=== PATIENT | female | born 1965 | race Caucasian/White ===

== ENCOUNTER 2020-06-04 10:09 | Outpatient (NON) | payer OTHER, SELFPAY ==
[2020-06-04 23:33] LABS: SARS-CoV-2 RNA PCR Negative
== END 2020-06-04 10:10 ==
LOC: ANHCOVIDDT 10:10
PROVIDERS: Visit Provider Registered Nurse
DX: R06.02 Shortness of breath (principal); J32.9 Chronic sinusitis, unspecified; Z20.822 Contact with and (suspected) exposure to COVID-19
CPT/HCPCS: C9803; U0003

== ENCOUNTER 2021-04-14 02:40 | Emergency (ER) | payer OTHER, SELFPAY ==
--- NOTE | ~2021-04-14 | CT_ITS ---
EXAMINATION: CTA brain carotid EXAM DATE: 04/14/2021 03:12 INDICATION: Facial paresthesia. TECHNIQUE: Noncontrast head CT. Spiral CTA of the carotid arteries was performed with intravenous i njection 100 cc of Omnipaque 350. Axial, coronal, sagittal reformatted images reviewed. Additional r eformatted images created on dedicated 3-D workstation. NASCET comparable standard used to assess th e degree of arterial stenosis. Spiral CT angiogram cerebral arteries performed with the same intrave nous injection of contrast. Source images of the brain CTA transferred to dedicated workstation for 3 -D rotational image creation. Coronal, sagittal maximum intensity pixel images also reviewed. The d ose-length product (DLP) for this examination was 1624.73 mGy-cm. The exposure was tailored accordi ng to patient size, and iterative reconstruction (ASIR) was used as additional dose reduction techniq ue. There is no prior study for comparison. FINDINGS: There is no carotid plaque, 0% stenosis bilaterally. The left vertebral artery is dominant. There is no carotid or vertebral basilar arterial dissection or fibromuscular dysplasia. There are no cerebral artery aneurysms. There is symmetric cerebral artery arborization. The sagittal, transver se and sigmoid sinuses enhance normally, no venous sinus thrombosis. Internal cerebral veins also enh ance normally. There is no acute intraparenchymal hemorrhage. No evidence of intraparenchymal brain mass lesion. N o evidence of acute infarction. There is no mass effect or midline shift. There is no obstructive hyd rocephalus suspected. There are no extra-axial collections. Bilateral cataract surgery. Incidental Findings: Tiny thyroid nodules not clinically significant. Benign bony right frontal anter ior cortical table thickening. Scattered mediastinal, right upper lobe granulomata. Mild cervical spo ndylosis. IMPRESSION: 1. No acute carotid or intracranial findings. 2. Bilateral carotid bulb 0% stenosis. Reviewed, dictated and finalized at location B. NOLOGIST
--- NOTE | ~2021-04-14 | XR_ITS ---
XR chest 1V portable DATE: 04/14/2021 03:17 INDICATION: Stroke protocol. Headache. TECHNIQUE: AP chest on 04/14/2021 at 0311 hours COMPARISON: None FINDINGS: Normal heart size. No pulmonary infiltrate or consolidation, pleural effusion or pulmonary vascular congestion or pneumothorax. Surgical clips, right upper quadrant, likely due to cholecystectomy. IMPRESSION: No active cardiopulmonary disease Reviewed, dictated and finalized at location A. RING SHEAR OPERATOR
[2021-04-14 02:43] VITALS: BP 151/82; PULSE 69; RESP 20; TEMP 36.6; O2SAT 97
--- NOTE | 2021-04-14 02:53 | ECG_ITS ---
Measurements Intervals [place] Rate: 69 P: 20 NH: 153 QRS: 5 QRSD: 82 T: 35 QT: 404 QTc: 434 Interpretive Statements SINUS RHYTHM VOLTAGE CRITERIA FOR LVH BASELINE ARTIFACT- AVR, AVL, AVF, V5 BORDERLINE ECG Electronically Signed On 04-14-2021 6:23:29 EDGE BLACKER by Vini Vargas D.O.
[2021-04-14 02:54] LABS: Glucose Point of Care 105 mg/dl (65-105)
--- NOTE | 2021-04-14 02:55 | PC.NURSE ---
Pt to CT via stretcher at this time. Pt on tele monitor.
[2021-04-14 03:04] LABS: Estimated CRCL calculation 70 ml/min; Estimated Glomerular Filt Rate > 60
[2021-04-14 03:28] LABS: Basophils Absolute Auto 0.1 K/mm3 (0.0-0.1); Basophils Percent Auto 0.9 % (0.2-1.2); Eosinophils Absolute Auto 0.2 K/mm3 (0-0.3); Hematocrit 40.6 % (37.0-47.0); Hemoglobin 13.7 g/dL (12.0-15.0); Immature Granulocyte Absolute 0.02 K/mm3 (0.00-0.031); Immature Granulocyte Percent A 0.4 % (0-0.5); Lymphocytes Absolute Auto 1.86 K/mm3 (0.9-3.2); Lymphocytes Percent Auto 33.3 % (18.3-44.2); Mean Corpuscular HGB Conc 33.7 g/dl (32-36); Mean Corpuscular Hemoglobin 30.1 pg (26-34); Mean Corpuscular Volume 89.2 fl (80-100); Mean Platelet Volume 10.3 fl (7.4-10.4); Monocytes Absolute Auto 0.4 K/mm3 (0.1-0.6); Monocytes Percent Auto 6.8 % (2.6-8.5); Neutrophils Absolute Auto 3.1 K/mm3 (1.3-6.7); Neutrophils Percent Auto 55.6 % (45.5-73.1); Platelet Count Result 178 k/mm3 (150-375); Red Blood Count 4.55 M/mm3 (4.2-5.4); Red Cell Distribution Width 13.1 % (11.5-14.5); White Blood Count 5.6 K/mm3 (4.5-10.0)
--- NOTE | 2021-04-14 03:36 | ED.NEUROSD ---
HPI - Neuro Symptoms/Deficit General Chief Complaint: Neuro Symptoms/Deficit Stated Complaint: ?cva Time Seen by Provider: 04/14/21 02:46 Source: patient Mode of arrival: ambulatory Limitations: no limitations History of Present Illness HPI Narrative: Patient is a 55-year-old female complaining of left facial numbness accompanied by left upper extremity numbness that woke her up from sleep this morning. Patient states that she has a history of complicated migraine headache, and presenting symptoms is usually headache, left upper extremity numbness and left facial numbness, but patient states that she also has a history of stroke, and the facial numbness was somewhat different this time and that is why she came to the ER. Patient states that she has been having migraine for the past 2 days. 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 Patient denies any speech or visual disturbance, focal weakness, or unsteady gait. Related Data Home Medications Medication Instructions Recorded Confirmed rivaroxaban [Xarelto] mg 04/14/21 Allergies Allergy/AdvReac Type Severity Reaction Status Date / Time morphine Allergy Severe Unknown Unverified 04/14/21 03:47 Penicillins Allergy Severe Unknown Unverified 04/14/21 03:47 tramadol Allergy Unknown Verified 04/14/21 03:47 Review of Systems Review of Systems: All systems reviewed & are unremarkable except as noted in HPI and below Constitutional: Constitutional: Denies body ache(s), Denies chills, Denies excessive sweating, Denies fatigue, Denies fever(s), Denies headache(s), Denies lethargy, Denies malaise, Denies weakness and Denies weight loss Eyes: Eyes: Denies blurry vision, Denies change in vision and Denies loss of vision ENT: Denies dizziness, Denies ear discharge, Denies headache(s), Denies lip swelling, Denies epistaxis, Denies nasal congestion, Denies neck pain, Denies throat swelling and Denies tongue swelling Cardiovascular: Cardiovascular: Denies chest pain, Denies chest pain at rest, Denies chest pain with activity, Denies diaphoresis, Denies rapid heart rate, Denies edema, Denies irregular heart rhythm, Denies lightheadedness, Denies palpitations, Denies dyspnea and Denies dyspnea on exertion Respiratory: Respiratory: Denies chest congestion, Denies cough, Denies hemoptysis, Denies dyspnea and Denies dyspnea on exertion Gastrointestinal: Gastrointestinal: Denies abdominal pain, Denies melena, Denies hematochezia, Denies diarrhea, Denies nausea, Denies vomiting and Denies hematemesis Musculoskeletal: Musculoskeletal: Denies abnormal gait, Denies deformity, Denies joint swelling, Denies limited range of motion and Denies neck pain Neurologic: Denies Abnormal speech present, Denies abnormal gait, Denies confusion, Denies dizziness, Denies headache(s), Denies focal weakness, Denies loss of vision, Denies Other visual disturbances, Denies Sensory deficit (Neuro) and Denies weakness Psychiatric: Psychiatric: Denies confusion, Denies depression, Denies auditory hallucinations, Denies homicidal ideation and Denies suicidal ideation Endocrine: Endocrine: Denies cold intolerance, Denies excessive sweating, Denies fatigue, Denies heat intolerance and Denies palpitations Hematologic/Lymphatic: Hematologic/Lymphatic: Denies easy bleeding and Denies easy bruising Allergic/Immunologic: Allergic/Immunologic: Denies lip swelling, Denies throat swelling and Denies tongue swelling PMFSH Comments Past medical history: Complicated migraine, stroke, protein C&S deficiency Family history: Migraine Social history: Non-smoker no EtOH or drug use Exam Const: General: cooperative, healthy appearing, comfortable, no acute distress, well developed, alert and awake; No confusion Orientation/consciousness: oriented to person, oriented to place, oriented to time, patient oriented x3 and No confusion Limitations: no limitations HENMT: Head: normal to inspection, normocephalic a
[2021-04-14 03:41] LABS: INR 1.1; Prothrombin Time 14.4 Seconds (11.1-14.7)
[2021-04-14 03:42] LABS: Alanine Aminotransferase 39 U/L (4-35); Albumin Level 3.6 g/dL (3.5-5.1); Alkaline Phosphatase 50 U/L (38-126); Anion Gap 8 mmol/L (8-16); Aspartate Amino Transferase 29 U/L (14-36); Bilirubin,Total 0.5 mg/dL (0.2-1.3); Blood Urea Nitrogen 14 mg/dL (7-17); Calcium 8.8 mg/dL (8.4-10.2); Carbon Dioxide 23 mmol/L (22-30); Chloride 104 mmol/L (98-107); Estimated CRCL calculation 78 ml/min; Estimated Glomerular Filt Rate > 60; Glucose 118 mg/dL (65-110); Partial Thromboplastin Time 34.5 SECONDS (22.3-36.8); Potassium 3.7 mmol/L (3.4-5.0); Sodium 135 mmol/L (137-145)
[2021-04-14 03:54] LABS: Troponin I < 0.012 ng/mL (0.000-0.034)
[2021-04-14 03:57] VITALS: BP 143/83; PULSE 67; RESP 18; O2SAT 97
== END 2021-04-14 04:43 | disposition home or self-care (01) ==
PROVIDERS: Emergency Provider Emergency Medicine; PCP Registered Nurse
DX: G43.109 Migraine with aura, not intractable, without status migrainosus (principal)
CPT/HCPCS: 70496; 70498; 71045; 80053; 82948; 84484; 85025; 85610; 85730; 93005; 99284; Q9967

== ENCOUNTER → 2021-07-03 11:03 | Outpatient (CLI) | payer OTHER, SELFPAY ==
--- NOTE | ~2021-07-03 | MM_ITS ---
EXAMINATION: MM screening priti BI w ruby HISTORY: Screening TECHNIQUE: Craniocaudal and mediolateral oblique 3-D tomosynthesis images were obtained and synthetic 2-D images were generated. CAD analysis was submitted and interpreted. COMPARISON: 09/07/2018 BREAST PARENCHYMAL COMPOSITION: There are scattered areas of fibroglandular density. FINDINGS: There is no evidence of suspicious mass, calcification, or architectural distortion to sugg est malignancy in either breast. There has been no suspicious interval change. IMPRESSION: 1. No mammographic evidence of malignancy. 2. Recommend routine screening mammography in one year. BI-RADS Category 1: Negative Reviewed, dictated and finalized at location A. S CUT OFF SUPERVISOR
== END ==
PROVIDERS: PCP Registered Nurse; Visit Provider Registered Nurse
DX: Z12.31 Encounter for screening mammogram for malignant neoplasm of breast (principal)
CPT/HCPCS: 77063; 77067

== ENCOUNTER → 2021-09-06 13:43 | Outpatient (CLI) | payer OTHER, SELFPAY ==
--- NOTE | ~2021-09-06 | MR_ITS ---
EXAMINATION: MR brain/brain stem wo/w con DATE: 09/06/2021 14:24 INDICATION: Cerebrovascular accident. TECHNIQUE: Magnetic resonance imaging (MRI) of the brain and brainstem was performed without and with 18 mL MultiHance intravenous contrast. Sequences included sagittal and axial T1-weighted FSE, axial diffusion-weighted FS EPI, axial T2*-weighted GRE, axial T2-weighted FLAIR Propeller, and axial T2-we ighted Propeller. Postcontrast sequences included axial and coronal T1-weighted FSE. Apparent diffusi on coefficient (ADC) maps were created. COMPARISON: Brain MRI 03/23/2006, head CT 04/14/2021 FINDINGS: There is no intracranial hemorrhage, acute infarction, or abnormal intracranial mass lesion . The ventricles are normal in size. The paranasal sinuses are clear. There are likely changes of ocu lar lens replacement surgeries. The mastoid air cells are normal. IMPRESSION: 1. Normal brain. Reviewed, dictated and finalized at location A. IMPRESSION: 1. Normal brain.
[2021-09-06 14:06] LABS: Estimated Glomerular Filt Rate > 60
== END ==
PROVIDERS: PCP Registered Nurse
DX: I63.9 Cerebral infarction, unspecified (principal)
CPT/HCPCS: 70553; A9577

== ENCOUNTER → 2021-09-13 13:52 | Outpatient (CLI) | payer OTHER, SELFPAY ==
--- NOTE | ~2021-09-13 | MR_ITS ---
EXAMINATION: MRA neck wo/w con DATE: 09/13/2021 14:52 INDICATION: Cerebrovascular accident. Facial paresthesia. TECHNIQUE: Magnetic resonance angiography (MRA) of the neck was performed without and with 18 mL Mult iHance intravenous contrast. Sequences included axial 2D-time of flight T1-weighted FSPGR, axial Inha nce, and coronal T1-weighted FSPGR without and with intravenous contrast. COMPARISON: CTA neck 04/14/2021 FINDINGS: There is no visible plaque in the proximal internal carotid arteries. There is 0% stenosis of the pro ximal right internal carotid artery relative to normal distal artery lumen diameter (NASCET criteria) . There is 0% stenosis of the proximal left internal carotid artery relative to normal distal artery lumen diameter. Left vertebral artery is dominant. IMPRESSION: 1. Normal internal carotid arteries. Reviewed, dictated and finalized at location B.
== END ==
DX: I63.9 Cerebral infarction, unspecified (principal)
CPT/HCPCS: 70549; A9577

== ENCOUNTER → 2021-09-14 13:58 | Outpatient (CLI) | payer OTHER, SELFPAY ==
--- NOTE | ~2021-09-14 | MR_ITS ---
EXAMINATION: MRA brain wo con DATE: 09/14/2021 14:40 INDICATION: Cerebrovascular accident. Left-sided numbness. TECHNIQUE: Magnetic resonance angiography (MRA) of the brain was performed without intravenous contra st with T1-weighted SPGR by the 3D [id number] technique. Maximum intensity projection 3D-reconstr uctions were obtained. COMPARISON: Brain MRI 09/06/2021 FINDINGS: Left vertebral artery is dominant. There is no significant stenosis of basilar artery or the posterio r cerebral arteries. Right P1 posterior cerebral artery segment is small, a normal variant. Right pos terior communicating artery is normal. A left posterior communicating artery is not identified. There is no significant stenosis of the intracranial internal carotid arteries or anterior or middle cereb ral arteries. Anterior communicating artery is normal. There is no aneurysm. IMPRESSION: 1. Normal MRA. Reviewed, dictated and finalized at location B. IMPRESSION: 1. Normal MRA.
== END ==
PROVIDERS: PCP Registered Nurse
DX: I63.9 Cerebral infarction, unspecified (principal)
CPT/HCPCS: 70544

== ENCOUNTER 2022-03-10 09:16 | Emergency (ER) | payer OTHER, SELFPAY ==
[2022-03-10] VITALS (8 sets, daily range): BP systolic 116–151; BP diastolic 66–94; PULSE 56–80; RESP 9–20; TEMP 36.6; O2SAT 95–100
--- NOTE | ~2022-03-10 | XR_ITS ---
EXAMINATION: XR chest 2V DATE: 03/10/2022 09:47 INDICATION: Chest pain. TECHNIQUE: Frontal and lateral views of the chest were obtained. COMPARISON: Chest single view 04/14/2021 FINDINGS: Again seen is mild elevation of right hemidiaphragm. Calcified pulmonary nodules and calcif ied hilar and mediastinal lymph nodes are consistent with old granulomatous disease. No pleural effus ion or pneumothorax. The heart size is normal. Surgical clips in the right upper quadrant are likely from cholecystectomy. IMPRESSION: 1. No acute cardiopulmonary disease. Reviewed, dictated and finalized at location A.
--- NOTE | 2022-03-10 09:22 | ECG_ITS ---
Measurements Intervals [place] Rate: 66 P: 46 ND: 173 QRS: 31 QRSD: 93 T: 64 QT: 404 QTc: 426 Interpretive Statements SINUS RHYTHM COMPARED TO ECG 04/14/2021 02:48:53 NO SIGNIFICANT CHANGES Electronically Signed On 03-10-2022 14:52:21 CDT by Dimitry Anderson M.D.
--- NOTE | 2022-03-10 09:24 | ED.GENADULT ---
HPI - General Adult General Chief complaint: Chest Pain Stated complaint: chest pain Time Seen by Provider: 03/10/22 09:23 History of Present Illness HPI narrative: 56-year-old female with history of CVA but no prior history of [place] presented to the emergency department for evaluation of some right-sided chest pain. Patient states this morning approximately 830 she was getting ready for work and had onset of some right-sided chest pain. Patient describes it as a pressure. Patient states is the second morning that has happened. Patient states yesterday she had similar pain when getting ready for work. Patient states that pain did resolve on its own. Pain today was concerning so she called EMS. Patient did take aspirin and was also treated with nitro in route. Patient states that the nitro patient denies any right-sided chest pain but states that she does have some epigastric burning at this time. Patient does have prior history of a stroke in 2006. Patient had a stress test approximately 6 years ago. Patient had a hysterectomy 2011, cholecystectomy in 2000, knee repair in 2014 and cataracts in 2020 Related Data Home Medications Medication Instructions Recorded Confirmed rivaroxaban 20 mg tablet (Xarelto) mg 04/14/21 rosuvastatin 5 mg tablet mg 03/10/22 Allergies Allergy/AdvReac Type Severity Reaction Status Date / Time morphine Allergy Severe Unknown Verified 03/10/22 12:55 Penicillins Allergy Severe Unknown Verified 03/10/22 12:55 tramadol Allergy Unknown Unknown Verified 03/10/22 12:55 Review of Systems Review of Systems: CONSTITUTIONAL: Denies fever, chills, or sweats. EYES: Denies visual changes, redness, or discharge. ENT: Denies rhinorrhea, congestion, sore throat, or otalgia. CARDIOVASCULAR: Right-sided chest pain/chest pressure RESPIRATORY: Denies cough or dyspnea. GASTROINTESTINAL: Denies abdominal pain, nausea, vomiting, or diarrhea. GENITOURINARY: Denies dysuria or hematuria. SKIN: Denies rash or itching. MUSCULOSKELETAL: Denies back pain, joint pain, or myalgia. NEUROLOGIC: Denies headache, numbness, or weakness. Exam Narrative: APPEARANCE: Well appearing, no pain, no distress, well-nourished. HEAD: normocephalic, atraumatic. EYES: PERRLA/EOMI, conjunctivae clear. NOSE: Normal no drainage NECK: Supple. No adenopathy, no masses. RESPIRATORY: Airway patent, respirations nonlabored. Clear to auscultation bilaterally, no rales, rhonchi, wheezing. CARDIOVASCULAR: Regular rate and rhythm without murmurs rubs or gallops. ABDOMINAL: Soft, epigastric tenderness to palpation. No reproducible right-sided chest pain. MUSCULOSKELETAL: Moves all extremities. Strength/ROM intact, No edema, No calf tenderness. NEURO: Alert. Cranial nerves II through XII intact. SKIN: Warm, dry. Normal Color PSYCHIATRIC: Normal affect/mood. Course Course Emergency Course: Patient had a chest x-ray showed no acute cardiopulmonary normality. Patient was afebrile with leukocytosis. Patient's electrolytes are similar to her baseline. Patient had negative serial troponins. EKG showed normal sinus rhythm. Patient was updated on results of her work-up and was comfortable with the plan for discharge and close follow-up. Patient was encouraged to have further outpatient cardiac testing. All questions and concerns were addressed. Vital Signs Vital signs: Vital Signs Temperature 97.9 F 03/10/22 09:12 Pulse Rate 75 03/10/22 09:12 Respiratory Rate 12 03/10/22 09:12 Blood Pressure 135/75 03/10/22 09:12 Pulse Oximetry 95 03/10/22 09:12 Oxygen Delivery Room Air 03/10/22 09:12 Temperature 97.9 F 03/10/22 09:12 Pulse Rate 80 03/10/22 14:30 Respiratory Rate 16 03/10/22 14:30 Blood Pressure 151/90 H 03/10/22 14:30 Pulse Oximetry 100 03/10/22 14:30 Oxygen Delivery Room Air 03/10/22 09:15 Medical Decision Making Vital Signs Vital Signs: Vital Signs Temperature 97.9 F 03/10/22 09:12 Pulse
[2022-03-10 09:33] LABS: Basophils Percent Auto 0.7 % (0.2-1.2); Eosinophils Absolute Auto 0.1 K/mm3 (0-0.3); Eosinophils Percent Auto 2.2 % (0-4.4); Hematocrit 40.7 % (37.0-47.0); Hemoglobin 13.4 g/dL (12.0-15.0); Immature Granulocyte Absolute 0.01 K/mm3 (0.00-0.031); Immature Granulocyte Percent A 0.2 % (0-0.5); Lymphocytes Absolute Auto 1.63 K/mm3 (0.9-3.2); Lymphocytes Percent Auto 28.2 % (18.3-44.2); Mean Corpuscular HGB Conc 32.9 g/dl (32-36); Mean Corpuscular Hemoglobin 29.3 pg (26-34); Mean Corpuscular Volume 89.1 fl (80-100); Mean Platelet Volume 10.6 fl (7.4-10.4); Monocytes Absolute Auto 0.3 K/mm3 (0.1-0.6); Neutrophils Absolute Auto 3.7 K/mm3 (1.3-6.7); Neutrophils Percent Auto 63.7 % (45.5-73.1); Platelet Count Result 170 k/mm3 (150-375); Red Blood Count 4.57 M/mm3 (4.2-5.4); Red Cell Distribution Width 12.9 % (11.5-14.5); White Blood Count 5.8 K/mm3 (4.5-10.0)
[2022-03-10 09:45] LABS: Alanine Aminotransferase 22 U/L (6-35); Albumin Level 4.2 g/dL (3.5-5.1); Alkaline Phosphatase 53 U/L (38-126); Anion Gap 13 mmol/L (8-16); Aspartate Amino Transferase 22 U/L (14-36); Bilirubin,Total 0.6 mg/dL (0.2-1.3); Blood Urea Nitrogen 13 mg/dL (7-17); Calcium 9.4 mg/dL (8.4-10.2); Carbon Dioxide 26 mmol/L (22-30); Chloride 106 mmol/L (98-107); Estimated CRCL calculation 60 ml/min; Estimated Glomerular Filt Rate 57; Glucose 141 mg/dL (65-110); Lipase 75 U/L (23-300); Potassium 3.7 mmol/L (3.4-5.0); Sodium 145 mmol/L (137-145)
[2022-03-10 09:49] LABS: INR 1.5; Prothrombin Time 17.6 Seconds (11.1-14.7)
[2022-03-10 09:50] LABS: Partial Thromboplastin Time 38.4 SECONDS (22.3-36.8)
[2022-03-10 09:56] LABS: Troponin I < 0.012 ng/mL (0.000-0.034)
[2022-03-10 13:07] LABS: Troponin I < 0.012 ng/mL (0.000-0.034)
== END 2022-03-10 14:30 | disposition home or self-care (01) ==
PROVIDERS: Emergency Provider Emergency Medicine; PCP Registered Nurse
DX: R07.9 Chest pain, unspecified (principal)
CPT/HCPCS: 36415; 71046; 80053; 83690; 84484; 85025; 85610; 85730; 93005; 99283

== ENCOUNTER 2022-08-07 09:18 | Emergency (ER) | payer OTHER, SELFPAY ==
--- NOTE | 2022-08-07 09:22 | ED.EXTPRO ---
HPI - Extremity Problem General Chief complaint: Skin/Abscess/Foreign Body Stated complaint: ingrown nail right 1st digit toe Time Seen by Provider: 08/07/22 09:23 Source: patient Mode of arrival: ambulatory Limitations: no limitations History of Present Illness HPI Narrative: Ms. Mendiola is a 57-year-old female patient presenting to clinic today with complaints of an ingrown toenail to the right great toe. She reports she has been trying to get it out and thinks that it is now infected. Symptoms have been going on for a few days however they tried remove it yesterday and now it is red and very painful. Related Data Home Medications Medication Instructions Recorded Confirmed rivaroxaban 20 mg tablet (Xarelto) 20 mg PO DAILY 04/14/21 08/07/22 rosuvastatin 5 mg tablet 5 mg PO DAILY 03/10/2223 Allergies Allergy/AdvReac Type Severity Reaction Status Date / Time morphine Allergy Severe Unknown Verified 08/07/22 09:23 Penicillins Allergy Severe Unknown Verified 08/07/22 09:23 tramadol Allergy Unknown Unknown Verified 08/07/22 09:23 Review of Systems Review of Systems: Pertinent positives per HPI. Patient denies any fever, chills, rash, headache, visual changes, dizziness, cough, runny nose, sore throat, shortness of breath, chest pain, palpitations, nausea, vomiting, diarrhea, constipation, abdominal pain, or any urinary issues. PMFSH Comments At the time of my signature, I reviewed and agree with the nursing past medical, surgical, social, and family history. There is no relevant family history pertinent to the patient complaint. Exam Narrative: General: Well-developed, well nourished, in no apparent distress Head: Normocephalic, atraumatic. Cardio: Regular rate and rhythm, s1 and s2 normal, no murmur appreciated. Resp: Clear to auscultation bilaterally, no rhonchi, rales, wheezing or rubs. Musculoskeletal: No deformity, tender to palpation over the right lateral distal great toe with redness and swelling without drainage, grossly normal range of motion, muscle strength strong and equal, peripheral pulse strong, no cyanosis, normal gait and station Course Course Emergency Course: Portions of this record may have been created with voice recognition software. Level of Care: Express Care Visit Vital Signs Vital signs: Vital Signs Temperature 36.2 C L 08/07/22 09:27 Pulse Rate 80 08/07/22 09:27 Respiratory Rate 16 08/07/22 09:27 Blood Pressure 145/80 H 08/07/22 09:27 Pulse Oximetry 99 08/07/22 09:27 Oxygen Delivery Room Air 08/07/22 09:27 Temperature 36.2 C L 08/07/22 09:27 Pulse Rate 80 08/07/22 09:27 Respiratory Rate 16 08/07/22 09:27 Blood Pressure 145/80 H 08/07/22 09:27 Pulse Oximetry 99 08/07/22 09:27 Oxygen Delivery Room Air 08/07/22 09:27 Vital signs reviewed Procedures Other Procedure Procedure 1: Other Procedure: Verbal consent obtained for ingrown toenail removal. Risk and benefits were discussed and patient voiced understanding. Toe was cleansed with Betadine. A total of 8 mL of lidocaine without epi were injected into the medial and lateral base of the right great toe creating a digital block. Anesthesia was appropriate. Great toewas re-cleansed with Betadine and a iris scissors was used to cut down the lateral aspect of the lateral great toenail and ingrown toenail was removed using a hemostat. Patient tolerated procedure very well. Bleeding was controlled. Triple antibiotic ointment and Band-Aid was applied with 4x4s and Coban covering the Band-Aid. MDM - Extremity (Nontraumatic) MDM Narrative Medical decision making narrative: At the time of visit patient is resting comfortably on the exam table. Verbal consent obtained for ingrown toenail removal. Procedure was successful. Supportive measures were discussed with the patient she voiced understanding of discharge instructions and agrees to treatment plan. Differential Diagnosis Di
[2022-08-07 09:27] VITALS: BP 145/80; PULSE 80; RESP 16; TEMP 36.2; O2SAT 99
== END 2022-08-07 10:20 | disposition home or self-care (01) ==
PROVIDERS: Emergency Provider Nurse Practitioner Family; PCP Registered Nurse
DX: L60.0 Ingrowing nail (principal)
CPT/HCPCS: 11750; 99213; G0463

== ENCOUNTER 2022-09-24 17:27 | Emergency (ER) | payer OTHER, SELFPAY ==
--- NOTE | ~2022-09-24 | XR_ITS ---
EXAMINATION: XR toe 4th LT min 2V DATE: 09/24/2022 17:50 INDICATION: Pain at the left fourth toe post injury TECHNIQUE: Dorsal plantar, lateral and 2 oblique views of the left fourth were obtained. COMPARISON: None FINDINGS: Bone alignment is normal. No fracture. Mild osteoarthritis at the first metatarsophalangeal and a few tarsometatarsal and interphalangeal joints. Mild soft tissue swelling about the fourth toe.. 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 No acute osseous abnormality. Reviewed, dictated and finalized at location A. 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 No acute osseou s abnormality.
[2022-09-24 17:37] VITALS: BP 138/80; PULSE 78; RESP 16; TEMP 36.5; O2SAT 96
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
== END 2022-09-24 18:14 | disposition home or self-care (01) ==
PROVIDERS: Emergency Provider Registered Nurse; PCP Registered Nurse
DX: S90.122A Contusion of left lesser toe(s) without damage to nail, initial encounter (principal); Z79.01 Long term (current) use of anticoagulants; Z86.73 Personal history of transient ischemic attack (TIA), and cerebral infarction without residual deficits; Z87.891 Personal history of nicotine dependence; W22.03XA Walked into furniture, initial encounter
CPT/HCPCS: 73660; 99213; G0463

== ENCOUNTER 2023-07-06 05:49 | Emergency (ER) | payer OTHER, SELFPAY ==
--- NOTE | ~2023-07-06 | CT_ITS ---
Non-contrast CT scan of the Abdomen and Pelvis Clinical indication: Flank pain Technique: 2.5 mm axial scans were obtained through the abdomen and pelvis without intravenous or or al contrast. Dose reduction technique was used on this scan by utilizing automated exposure control a nd iterative reconstruction technique. The dose-length product (DLP) was 834.05 mGy-cm. Findings: Images through the lung bases reveal calcified granulomas. Nonobstructing right renal stones measuring up to 5 mm. No left renal stone seen. No ureteral stone o n either side. Questionable mild fullness of the bilateral renal collecting system. The liver, spleen, pancreas, gallbladder, and adrenals appear normal. There is no aortic aneurysm. L arge densely calcified lymph node present in the epigastric region. There is no evidence of bowel obstruction. Images through the pelvis were performed. There is no evidence of ascites or lymphadenopathy. 6 mm ur inary bladder stone present. No pelvic mass evident. Impression: Nonobstructing right renal stones, as above. Questionable minimal fullness of the bilateral renal col lecting systems. 6 mm urinary bladder stone. Correlate for recently passed stone. Reviewed, dictated and finalized at location [facility] Impression: Nonobstructing right renal stones, as above. Questionable minimal fullness of t he bilateral renal collecting systems. 6 mm urinary bladder stone. Correlate for recently passed stone.
[2023-07-06 05:54] VITALS: BP 135/74; PULSE 89; RESP 17; TEMP 36.3; O2SAT 97
--- NOTE | 2023-07-06 06:49 | PC.NURSE ---
Pt to CT at this time.
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
[2023-07-06 06:54] LABS: Basophils Absolute Auto 0.1 K/mm3 (0.0-0.1); Basophils Percent Auto 0.7 % (0.2-1.2); Eosinophils Absolute Auto 0.2 K/mm3 (0-0.3); Eosinophils Percent Auto 2.2 % (0-4.4); Hematocrit 45.6 % (37.0-47.0); Hemoglobin 14.6 g/dL (12.0-15.0); Immature Granulocyte Absolute 0.01 K/mm3 (0.00-0.031); Immature Granulocyte Percent A 0.1 % (0-0.5); Lymphocytes Percent Auto 30.4 % (18.3-44.2); Mean Corpuscular Volume 90.7 fl (80-100); Mean Platelet Volume 10.5 fl (7.4-10.4); Monocytes Absolute Auto 0.4 K/mm3 (0.1-0.6); Monocytes Percent Auto 5.6 % (2.6-8.5); Neutrophils Absolute Auto 4.2 K/mm3 (1.3-6.7); Platelet Count Result 214 k/mm3 (150-375); Red Blood Count 5.03 M/mm3 (4.2-5.4); Red Cell Distribution Width 12.9 % (11.5-14.5); White Blood Count 6.9 K/mm3 (4.5-10.0)
[2023-07-06 06:57] LABS: Appearance Urine Cloudy (Clear); Bacteria Urine None Seen /hpf; Bilirubin Urine Negative (Negative); Blood Urine 3+ (Negative); Color Urine Yellow (Yellow); Glucose Urine UA Negative (Negative); Ketones Urine Negative (Negative); Leukocyte Esterase Ur Trace LEU/UL (Negative); Nitrate Urine Negative (Negative); Non Pathogenic Casts 0-2; Protein Urine Negative (Negative); RBC Urine >100 /hpf (0-2); Specific Grav Ur 1.014 (1.001-1.035); Squamous Epithelial Cell Urine Few /hpf (Few); WBC Urine 0-5 /hpf
[2023-07-06 06:59] LABS: Alanine Aminotransferase 24 U/L (6-35); Alkaline Phosphatase 53 U/L (38-126); Anion Gap 6 mmol/L (8-16); Aspartate Amino Transferase 23 U/L (14-36); Bilirubin,Total 0.6 mg/dL (0.2-1.3); Blood Urea Nitrogen 12 mg/dL (7-17); Calcium 9.7 mg/dL (8.4-10.2); Carbon Dioxide 25 mmol/L (22-30); Chloride 109 mmol/L (98-107); Estimated CRCL calculation 73 ml/min; Estimated Glomerular Filt Rate > 60; Glucose 118 mg/dL (65-110); Sodium 140 mmol/L (137-145)
[2023-07-06] MEDS: SODIUM CHLORIDE 0.9% IV 1,000 ML 999 ML IV CONT (07:19)
[2023-07-06] MEDS: HYDROmorphone HCL INJ (*CRX) 1 MG/ML SYR IV PUSH (07:20)
[2023-07-06] MEDS: ONDANSETRON INJ 4 MG/2 ML VIAL IV PUSH (07:20)
[2023-07-06 07:21] LABS: Add Urine Microscopic? YES
[2023-07-06 07:22] VITALS: BP 136/66; PULSE 71; RESP 15; O2SAT 97
[2023-07-06 07:31] VITALS: BP 139/65; PULSE 72; RESP 13; O2SAT 95
[2023-07-06 08:43] VITALS: BP 123/63; PULSE 59; RESP 13; O2SAT 99
== END 2023-07-06 08:44 | disposition home or self-care (01) ==
PROVIDERS: Emergency Medicine; Emergency Provider Emergency Medicine; PCP Registered Nurse
DX: N20.0 Calculus of kidney (principal); Z96.652 Presence of left artificial knee joint; Z86.73 Personal history of transient ischemic attack (TIA), and cerebral infarction without residual deficits; Z87.442 Personal history of urinary calculi; Z87.891 Personal history of nicotine dependence; Z90.49 Acquired absence of other specified parts of digestive tract; Z90.710 Acquired absence of both cervix and uterus
CPT/HCPCS: 36415; 74176; 80053; 81001; 85025; 96361; 96374; 96375; 99284; J1170; J2405; J7030

== ENCOUNTER 2023-07-20 01:09 | Day surgery (SDC) | payer OTHER, SELFPAY ==
[2023-07-12 12:46] VITALS: BMI 32.6
--- NOTE | 2023-07-12 12:55 | PC.NURSE ---
Report to the Outpatient Waiting Room, entrance under the green pavilion located off [facility], at time 6:00 on date 07/20/23. Planned Procedure Time: 7:30. Time changes happen often and if your time is changed the preop area will call you the afternoon before. - You and your visitor will be asked to self-screen and do not enter if you have any COVID symptoms. - A mask is optional within the hospital at this time. Patients may have clear liquids (water, carbonated beverages, clear teas, apple juice) until 3 hours prior to surgery (4:30) with a maximum of 20 ounces. - No food from midnight until time of surgery Take the following medications with a SIP of water the morning of surgery: PAIN PILL IF NEEDED DO NOT STOP ANY OF YOUR OTHER PRESCRIPTION MEDICATIONS PRIOR TO SURGERY ?EXCEPT THE FOLLOWING Medications to discontinue per physician: VITAMINS/SUPPLEMENTS Date to take last dose: PT HAS ALREADY STOPPED STOP XARELTO PER INSTRUCTIONS FROM DR. CANO Please no make-up, nail english, hairspray, perfume, deodorant, or body powder the day of surgery. No jewelry (including any body piercings) or valuables the day of surgery, leave them at home. Please take a shower or bath the night before, or the morning of, surgery with an antibacterial soap. Wear comfortable, loose fitting clothing. - Jewelry must be removed prior to entering the operating room. Rings and piercings that are not removed may be cut off. - The hospital will not accept responsibility for valuables. - Please leave all valuables, including medications, at home the day of surgery. If you are going home after surgery, a licensed [facility] driver must drive you home. - NO public transportation without another adult if you receive anesthesia. - We recommend that an adult stay with you for 24 hours following discharge. - We also recommend that you do not drive, make important decision, drink alcoholic beverages, or take any drugs that were not prescribed by your health care provider for at least 24 hours after your discharge time. Follow any additional instructions given to you from your surgeon. If you or anyone in your household have experienced Covid symptoms in the past week, please notify your surgeon or the nurse liaison at the phone number below for possible testing. Telephone instructions given to PT - MED ALVARENGA and asked if any additional questions and then verbalized understanding. Patient advised to call surgeon office or pre surgery nurse liaison [phone] if any additional questions.
[2023-07-20] VITALS (7 sets, daily range): BP systolic 126–148; BP diastolic 61–89; PULSE 69–102; RESP 14–16; TEMP 36.8–36.9; O2SAT 93–96
--- NOTE | ~2023-07-20 | XR_ITS ---
EXAMINATION: XR retrograde pyelogram LT INDICATION: Urinary bladder stone TECHNIQUE: 56 intraoperative fluoroscopic images are submitted for review. Total fluoroscopic time wa s 16.5 seconds. COMPARISON: None available FINDINGS: Fluoroscopic images demonstrate retrograde opacification of left ureter and collecting syst em which demonstrate mild distention. Please refer to procedure note for full details. IMPRESSION: 1. Please refer to procedure note for full details. Reviewed, dictated and finalized at location [facility]. [facility]
--- NOTE | 2023-07-20 05:57 | ECG_ITS ---
Measurements Intervals [place] Rate: 71 P: 22 UT: 173 QRS: 2 QRSD: 93 T: 39 QT: 402 QTc: 440 Interpretive Statements SINUS RHYTHM MINIMAL VOLTAGE CRITERIA FOR LVH, CONSIDER NORMAL VARIANT BORDERLINE ECG COMPARED TO ECG 03/10/2022 09:19:01 NO SIGNIFICANT CHANGES Electronically Signed On 07-20-2023 12:27:30 [facility] [employer]WIFE by Parish Gallegos M.D.
--- NOTE | 2023-07-20 06:22 | WPDHPUPDATE1 ---
History and Physical Update Update Date/Time: 07/20/23 06:22 History and Physical has been reviewed, including an updated exam of the patient. There are NO changes in the patient's condition. Risks, benefits, and alternatives have been discussed and questions answered. Patient agrees to proceed with procedure.
[2023-07-20] MEDS: LACTATED RINGERS 1,000 ML 30 ML IV CONT (06:30)
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
[2023-07-20 06:56] LABS: Glucose Point of Care 112 mg/dl (65-105)
[2023-07-20] MEDS: ceFAZolin 2 GM/D5W 50 ML 2 GM/50 ML BAG IVPB (07:28)
--- NOTE | 2023-07-20 07:59 | W.PM.PROC2 ---
Procedure Note - Detailed Date of Procedure 07/20/23 Pre-op Diagnosis Left ureteral stone Post-op Diagnosis Same Procedure Performed Cystoscopy, left ureteroscopy, left retrograde pyelography Surgeon Luis Cool MD Anesthesia General Findings Spontaneously passed left ureteral stone Description of Procedure Patient brought the op suite where she has prepped draped in routine sterile fashion while in dorsal lithotomy position after the uneventful induction of a general LMA anesthetic. Cystoscopy undertaken with a 19 F rigid cystoscope. Bladder neck and urethra endoscopically normal. Bladder mucosa is normal. There was no intravesical foreign body or neoplasm. She has a single orthotopic ureteral orifice bilaterally. Passed a 0.035 in glidewire to her left renal pelvis and dilated her distal ureter with 8 F 10 F dilator. Distal ureteroscopy was undertaken with a short tapered semi-rigid ureteral scope. There were no stones in the distal ureter. I performed a retrograde pyelogram to ensure no additional sites of obstruction or stones in the left ureter collecting system. Scopes wires removed she was taken recovery room good condition. Drains No Packing No Pathology None sent Complications No immediate complications
[2023-07-20 08:05] LABS: Glucose Point of Care 110 mg/dl (65-105)
== END 2023-07-20 09:22 | disposition home or self-care (01) ==
PROVIDERS: PCP Registered Nurse; Visit Provider Urology
PROC: (CPT 52352; principal; 2023-07-20 07:30)
DX: R93.429 Abnormal radiologic findings on diagnostic imaging of unspecified kidney (principal); J45.909 Unspecified asthma, uncomplicated; E66.9 Obesity, unspecified; Z68.32 Body mass index [BMI] 32.0-32.9, adult; Z79.01 Long term (current) use of anticoagulants; Z79.891 Long term (current) use of opiate analgesic; Z98.890 Other specified postprocedural states; Z90.49 Acquired absence of other specified parts of digestive tract; Z87.891 Personal history of nicotine dependence; Z86.73 Personal history of transient ischemic attack (TIA), and cerebral infarction without residual deficits
CPT/HCPCS: 52351; 74420; 82948; 93005; C1769; J0690; J1100; J2250; J2405; J2704; J3010; J7120; Q9966

== ENCOUNTER 2024-01-30 09:01 | Outpatient (CLI) | payer OTHER, SELFPAY ==
--- NOTE | ~2024-01-30 | XR_ITS ---
Supine and upright views of the abdomen Clinical history: Kidney stone Findings: Bowel gas pattern is nonspecific. No evidence for obstruction or free air. Probable small r ight kidney stone measuring 3 mm. No definite left renal stone. Chronic fracture deformities of the r ight superior and inferior pelvic rami noted.. Impression: Probable 3 mm right renal stone. Reviewed, dictated and finalized at [facility]. Impression: Probable 3 mm right renal stone.
== END 2024-01-30 09:02 | disposition home or self-care (01) ==
PROVIDERS: PCP Registered Nurse; Visit Provider Urology
DX: N20.0 Calculus of kidney (principal)
CPT/HCPCS: 74018

== ENCOUNTER 2024-10-13 15:29 | Emergency (ER) | payer OTHER, SELFPAY ==
[2024-10-13 15:47] VITALS: BP 135/79; PULSE 87; RESP 18; TEMP 36.5; O2SAT 97
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
== END 2024-10-13 16:20 | disposition home or self-care (01) ==
PROVIDERS: Emergency Provider Registered Nurse; PCP Registered Nurse
DX: B37.2 Candidiasis of skin and nail (principal); Z87.891 Personal history of nicotine dependence; E46 Unspecified protein-calorie malnutrition; Z79.01 Long term (current) use of anticoagulants; Z96.652 Presence of left artificial knee joint; Z86.73 Personal history of transient ischemic attack (TIA), and cerebral infarction without residual deficits; Z68.34 Body mass index [BMI] 34.0-34.9, adult
CPT/HCPCS: 99213; G0463